=== PATIENT | female | born 1975 | race Caucasian/White ===

== ENCOUNTER 2021-06-26 14:44 | Outpatient (CLI) | payer BC | END 2021-06-26 23:59 | disposition home or self-care (01) | LOC: RAD 14:44 | PROVIDERS: ATTEND Nurse Practitioner Family | DX: R13.14 Dysphagia, pharyngoesophageal phase (principal); K21.9 Gastro-esophageal reflux disease without esophagitis | CPT/HCPCS: 74230 ==